=== PATIENT | female | born 1995 | race Hispanic/Latino ===

== ENCOUNTER 2019-08-07 23:59 | Emergency (ER) | payer OTHER | END 2019-08-08 00:57 | disposition home or self-care (01) | LOC: EDH 23:59 | DX: S60.571A Other superficial bite of hand of right hand, initial encounter (principal); W54.0XXA Bitten by dog, initial encounter; Y93.89 Activity, other specified; Y92.488 Other paved roadways as the place of occurrence of the external cause; Y99.8 Other external cause status ==

== ENCOUNTER 2023-02-17 12:35 | Emergency (ER) | payer BC ==
[~2023-02-17] VITALS: Ht 160 cm; Wt 91.2 kg
[2023-02-17 13:54] VITALS: BP 105/66
== END 2023-02-17 17:20 | disposition home or self-care (01) ==
LOC: EDH 12:35
DX: M79.645 Pain in left finger(s) (principal)
CPT/HCPCS: 73130